=== PATIENT | female | born 1970 | race African-American/Black ===

== ENCOUNTER 2022-03-13 18:28 | Inpatient (IN) | payer OTHER ==
[2022-03-13 18:47] VITALS: BMI 27.0
[2022-03-13] MEDS ORDERED: P-EPHED 60MG/TRIPROLIDI 2.5MG TABLET PO PRN (21:11)
[2022-03-13] MEDS ORDERED: MAGNESIUM CITRATE 300 ML BOTTLE PO PRN (21:11)
[2022-03-13] MEDS ORDERED: MAGNESIUM HYDROX 2400MG/30ML ORAL SUSPENSION 30 ML CUP PO PRN (21:11)
[2022-03-13] MEDS ORDERED: guaiFENesin 200 MG/10 ML 10 ML UNIT-DOSE CUPS PO PRN (21:11)
[2022-03-13] MEDS ORDERED: LOPERAMIDE HCL 2 MG CAPSULE PO PRN (21:11)
[2022-03-14] MEDS ORDERED: TUBERCULIN PPD 5 TU/0.1ML VIAL ID ONE (01:27)
[2022-03-14] MEDS: IBUPROFEN 400 MG TABLET (FP) PO PRN ×2 (01:32→07:02)
[2022-03-14] MEDS: THIAMINE HCL 100 MG TABLET (FP) PO SCH ×2 (01:32→21:39)
[2022-03-14] MEDS: MELATONIN 5 MG TABLETS PO SCH ×2 (01:33→21:39)
[2022-03-14] MEDS ORDERED: cloNIDine HCL 0.1 MG TABLET PO ONE (06:32)
[2022-03-14] MEDS: PRENATAL VITAMINS W/ FOLIC ACID TABLET (FP) PO SCH (09:46)
[2022-03-14] MEDS: NICOTINE 21 MG/24 HOURS TOPICAL PATCH TD SCH (09:46)
[2022-03-14 10:51] LABS: HEMATOCRIT 36.2 % (32.4-45.2); HEMOGLOBIN 11.6 GM/dL (10.7-15.3); MCH 26.3 pg (25.7-33.7); MEAN PLT VOLUME 7.5 fl (7.5-11.1); PLATELET COUNT 228 10^3/uL (134-434); RBC 4.41 M/mm3 (3.60-5.2); RDW 13.3 % (11.6-15.6); WHITE BLOOD COUNT 4.5 K/mm3 (4.0-10.0)
[2022-03-14 11:08] LABS: CALCIUM 8.7 mg/dL (8.5-10.1)
[2022-03-14 11:09] LABS: ALBUMIN 3.4 g/dl (3.4-5.0); BLOOD UREA NITROGEN 52.6 mg/dL (7-18)
[2022-03-14 11:11] LABS: CREATININE 5.5 mg/dL (0.55-1.3)
[2022-03-14 11:12] LABS: BILIRUBIN,TOTAL 0.3 mg/dL (0.2-1); TOT PROT 6.4 g/dl (6.4-8.2)
[2022-03-14 11:21] LABS: SYPHILIS W/ RPR CONF NON-REACTIVE (NONREACTIVE)
[2022-03-14] MEDS ORDERED: POTASSIUM CHLORIDE TABS 20 MEQ TABLET.ER (FP) PO ONE (11:51)
[2022-03-14] MEDS: LISINOPRIL 20 MG TABLET PO SCH (13:39)
[2022-03-14] MEDS: GABAPENTIN 100 MG CAPSULE PO SCH ×2 (13:39→21:39)
[2022-03-14] MEDS: NIFEdipine E.R. 90 MG TABLET PO SCH (21:39)
[2022-03-14] MEDS ORDERED: POTASSIUM CHLORIDE TABS 20 MEQ TABLET.ER (FP) PO SCH (22:00)
[2022-03-15] MEDS: GABAPENTIN 100 MG CAPSULE PO SCH ×3 (06:32→21:20)
[2022-03-15] MEDS: NICOTINE 21 MG/24 HOURS TOPICAL PATCH TD SCH (10:36)
[2022-03-15] MEDS: PRENATAL VITAMINS W/ FOLIC ACID TABLET (FP) PO SCH (10:36)
[2022-03-15] MEDS: LISINOPRIL 20 MG TABLET PO SCH (10:38)
[2022-03-15] MEDS: ACETAMINOPHEN 325 MG TABLET (FP) PO PRN ×3 (10:39→18:25)
[2022-03-15 12:14] LABS: EPI CELLS >36 /uL (0-25.1); HYALINE CASTS 0 /uL (0-3.1); PH,URINE 6.5 (5.0-8.0); URINE APPEARANCE CLEAR; URINE BACTERIA 488 /uL (0-1359); URINE BILIRUBIN NEGATIVE (NEGATIVE); URINE COLOR YELLOW; URINE GLUCOSE (UA) NEGATIVE (NEGATIVE); URINE KETONE NEGATIVE (NEGATIVE); URINE LEUK ESTERASE NEGATIVE (NEGATIVE); URINE NITRITE NEGATIVE (NEGATIVE); URINE PROTEIN 1+ (NEGATIVE); URINE RBC 7 /uL (0-23.9); URINE UROBILINOGEN 0.2 mg/dL (0.2-1.0); URINE WBC 29 /uL (0-25.8)
[2022-03-15] MEDS: NICOTINE 10 MG CARTRIDGE (INHALER) IH PRN (14:48)
[2022-03-15] MEDS: MELATONIN 5 MG TABLETS PO SCH (21:20)
[2022-03-15] MEDS: THIAMINE HCL 100 MG TABLET (FP) PO SCH (21:20)
[2022-03-15] MEDS: NIFEdipine E.R. 90 MG TABLET PO SCH (21:20)
[2022-03-16] MEDS: GABAPENTIN 100 MG CAPSULE PO SCH ×3 (06:35→21:04)
[2022-03-16] MEDS: LISINOPRIL 20 MG TABLET PO SCH ×2 (06:35→07:02)
[2022-03-16] MEDS: BACITRACIN 0.9 GM PACKET TP SCH ×2 (07:49→10:31)
[2022-03-16] MEDS: ACETAMINOPHEN 325 MG TABLET (FP) PO PRN ×2 (09:58→13:56)
[2022-03-16] MEDS: NICOTINE 21 MG/24 HOURS TOPICAL PATCH TD SCH (10:31)
[2022-03-16] MEDS: PRENATAL VITAMINS W/ FOLIC ACID TABLET (FP) PO SCH (10:31)
[2022-03-16] MEDS: METHYL SALICYLATE/MENTHOL OINT 30 GM TUBE TP SCH ×2 (13:56→21:06)
[2022-03-16] MEDS: METHOCARBAMOL 500 MG TABLET PO PRN ×2 (13:56→21:07)
[2022-03-16] MEDS: NIFEdipine E.R. 90 MG TABLET PO SCH (21:05)
[2022-03-16] MEDS: MELATONIN 5 MG TABLETS PO SCH (21:05)
[2022-03-16] MEDS: THIAMINE HCL 100 MG TABLET (FP) PO SCH (21:05)
[2022-03-17] MEDS: GABAPENTIN 100 MG CAPSULE PO SCH ×3 (06:22→21:06)
[2022-03-17] MEDS: LISINOPRIL 20 MG TABLET PO SCH (06:22)
[2022-03-17] MEDS: PRENATAL VITAMINS W/ FOLIC ACID TABLET (FP) PO SCH (09:40)
[2022-03-17] MEDS: BACITRACIN 0.9 GM PACKET TP SCH (09:40)
[2022-03-17] MEDS: METHYL SALICYLATE/MENTHOL OINT 30 GM TUBE TP SCH ×2 (09:40→21:43)
[2022-03-17] MEDS ORDERED: COLLOIDAL OATMEAL 1 BAR EACH TP PRN (10:22)
[2022-03-17] MEDS: NICOTINE 21 MG/24 HOURS TOPICAL PATCH TD SCH (10:49)
[2022-03-17 10:54] LABS: ALBUMIN 3.2 g/dl (3.4-5.0); BILIRUBIN,TOTAL 0.7 mg/dL (0.2-1); BLOOD UREA NITROGEN 18.7 mg/dL (7-18); CALCIUM 9.1 mg/dL (8.5-10.1); CREATININE 1.2 mg/dL (0.55-1.3); TOT PROT 6.7 g/dl (6.4-8.2)
[2022-03-17] MEDS: MINERAL OIL/PETROLAT/WATER TOPICAL CREAM 113 GM JAR TP SCH (10:57)
[2022-03-17] MEDS: NICOTINE 10 MG CARTRIDGE (INHALER) IH PRN (12:46)
[2022-03-17] MEDS: cloNIDine HCL 0.1 MG TABLET PO PRN (15:31)
[2022-03-17] MEDS: MELATONIN 5 MG TABLETS PO SCH (21:06)
[2022-03-17] MEDS: THIAMINE HCL 100 MG TABLET (FP) PO SCH (21:06)
[2022-03-17] MEDS: NIFEdipine E.R. 90 MG TABLET PO SCH (21:07)
[2022-03-17] MEDS: ACETAMINOPHEN 325 MG TABLET (FP) PO PRN (21:08)
[2022-03-18] MEDS: LISINOPRIL 20 MG TABLET PO SCH (06:16)
[2022-03-18] MEDS: GABAPENTIN 100 MG CAPSULE PO SCH ×3 (06:16→21:23)
[2022-03-18] MEDS: PRENATAL VITAMINS W/ FOLIC ACID TABLET (FP) PO SCH (09:34)
[2022-03-18] MEDS: METHYL SALICYLATE/MENTHOL OINT 30 GM TUBE TP SCH ×2 (09:35→21:31)
[2022-03-18] MEDS: BACITRACIN 0.9 GM PACKET TP SCH (09:35)
[2022-03-18] MEDS: MINERAL OIL/PETROLAT/WATER TOPICAL CREAM 113 GM JAR TP SCH (09:36)
[2022-03-18] MEDS: ACETAMINOPHEN 325 MG TABLET (FP) PO PRN ×2 (09:36→16:42)
[2022-03-18] MEDS: NICOTINE 21 MG/24 HOURS TOPICAL PATCH TD SCH (09:36)
[2022-03-18] MEDS: METHOCARBAMOL 500 MG TABLET PO PRN ×2 (14:11→21:23)
[2022-03-18] MEDS: THIAMINE HCL 100 MG TABLET (FP) PO SCH (21:22)
[2022-03-18] MEDS: MELATONIN 5 MG TABLETS PO SCH (21:23)
[2022-03-18] MEDS: NIFEdipine E.R. 90 MG TABLET PO SCH (21:23)
[2022-03-18] MEDS: cloNIDine HCL 0.1 MG TABLET PO PRN (22:11)
[2022-03-19] MEDS: GABAPENTIN 100 MG CAPSULE PO SCH ×3 (05:50→21:08)
[2022-03-19] MEDS: LISINOPRIL 20 MG TABLET PO SCH (06:00)
[2022-03-19] MEDS: PRENATAL VITAMINS W/ FOLIC ACID TABLET (FP) PO SCH (09:25)
[2022-03-19] MEDS: cloNIDine HCL 0.1 MG TABLET PO PRN ×2 (09:25→20:48)
[2022-03-19] MEDS: METHYL SALICYLATE/MENTHOL OINT 30 GM TUBE TP SCH ×2 (09:26→21:08)
[2022-03-19] MEDS: BACITRACIN 0.9 GM PACKET TP SCH (09:26)
[2022-03-19] MEDS: MINERAL OIL/PETROLAT/WATER TOPICAL CREAM 113 GM JAR TP SCH (09:27)
[2022-03-19] MEDS: NICOTINE 21 MG/24 HOURS TOPICAL PATCH TD SCH (09:27)
[2022-03-19] MEDS: ACETAMINOPHEN 325 MG TABLET (FP) PO PRN (18:59)
[2022-03-19] MEDS: METHOCARBAMOL 500 MG TABLET PO PRN (18:59)
[2022-03-19] MEDS: MELATONIN 5 MG TABLETS PO SCH (21:07)
[2022-03-19] MEDS: NIFEdipine E.R. 90 MG TABLET PO SCH (21:08)
[2022-03-19] MEDS: THIAMINE HCL 100 MG TABLET (FP) PO SCH (21:08)
[2022-03-20] MEDS: GABAPENTIN 100 MG CAPSULE PO SCH ×3 (06:09→21:06)
[2022-03-20] MEDS: LISINOPRIL 20 MG TABLET PO SCH (06:09)
[2022-03-20] MEDS: PRENATAL VITAMINS W/ FOLIC ACID TABLET (FP) PO SCH (09:45)
[2022-03-20] MEDS: cloNIDine HCL 0.1 MG TABLET PO PRN (09:45)
[2022-03-20] MEDS: METHYL SALICYLATE/MENTHOL OINT 30 GM TUBE TP SCH ×2 (09:46→21:07)
[2022-03-20] MEDS: BACITRACIN 0.9 GM PACKET TP SCH (09:46)
[2022-03-20] MEDS: METHOCARBAMOL 500 MG TABLET PO PRN ×2 (09:47→17:32)
[2022-03-20] MEDS: ACETAMINOPHEN 325 MG TABLET (FP) PO PRN ×3 (09:48→21:08)
[2022-03-20] MEDS: MINERAL OIL/PETROLAT/WATER TOPICAL CREAM 113 GM JAR TP SCH (09:55)
[2022-03-20] MEDS: NICOTINE 21 MG/24 HOURS TOPICAL PATCH TD SCH (09:55)
[2022-03-20] MEDS ORDERED: ARIPiprazole 10 MG TABLET PO ONE (14:58)
[2022-03-20] MEDS: THIAMINE HCL 100 MG TABLET (FP) PO SCH (21:06)
[2022-03-20] MEDS: NIFEdipine E.R. 90 MG TABLET PO SCH (21:06)
[2022-03-20] MEDS: MELATONIN 5 MG TABLETS PO SCH (21:10)
[2022-03-21] MEDS: LISINOPRIL 20 MG TABLET PO SCH (06:27)
[2022-03-21] MEDS: GABAPENTIN 100 MG CAPSULE PO SCH ×3 (06:27→21:09)
[2022-03-21] MEDS: BACITRACIN 0.9 GM PACKET TP SCH (09:51)
[2022-03-21] MEDS: NICOTINE 21 MG/24 HOURS TOPICAL PATCH TD SCH (09:51)
[2022-03-21] MEDS: METHYL SALICYLATE/MENTHOL OINT 30 GM TUBE TP SCH ×2 (09:51→21:10)
[2022-03-21] MEDS: MINERAL OIL/PETROLAT/WATER TOPICAL CREAM 113 GM JAR TP SCH (09:51)
[2022-03-21] MEDS: NICOTINE 10 MG CARTRIDGE (INHALER) IH PRN (09:51)
[2022-03-21] MEDS: PRENATAL VITAMINS W/ FOLIC ACID TABLET (FP) PO SCH (09:51)
[2022-03-21] MEDS: METHOCARBAMOL 500 MG TABLET PO PRN ×2 (09:53→21:09)
[2022-03-21] MEDS: ARIPiprazole 10 MG TABLET PO SCH (10:50)
[2022-03-21] MEDS: FLUoxetine HCL 20 MG CAPSULE PO SCH (10:50)
[2022-03-21] MEDS: ACETAMINOPHEN 325 MG TABLET (FP) PO PRN (20:12)
[2022-03-21] MEDS: NIFEdipine E.R. 90 MG TABLET PO SCH (21:09)
[2022-03-21] MEDS: THIAMINE HCL 100 MG TABLET (FP) PO SCH (21:09)
[2022-03-21] MEDS: cloNIDine HCL 0.1 MG TABLET PO PRN (21:09)
[2022-03-21] MEDS: MELATONIN 5 MG TABLETS PO SCH (21:10)
[2022-03-22] MEDS: ACETAMINOPHEN 325 MG TABLET (FP) PO PRN ×3 (06:27→21:15)
[2022-03-22] MEDS: LISINOPRIL 20 MG TABLET PO SCH (06:28)
[2022-03-22] MEDS: GABAPENTIN 100 MG CAPSULE PO SCH ×3 (06:28→21:15)
[2022-03-22] MEDS: NICOTINE 21 MG/24 HOURS TOPICAL PATCH TD SCH (09:54)
[2022-03-22] MEDS: FLUoxetine HCL 20 MG CAPSULE PO SCH (09:54)
[2022-03-22] MEDS: PRENATAL VITAMINS W/ FOLIC ACID TABLET (FP) PO SCH (09:54)
[2022-03-22] MEDS: ARIPiprazole 10 MG TABLET PO SCH (09:54)
[2022-03-22] MEDS: MINERAL OIL/PETROLAT/WATER TOPICAL CREAM 113 GM JAR TP SCH (09:55)
[2022-03-22] MEDS: BACITRACIN 0.9 GM PACKET TP SCH (09:55)
[2022-03-22] MEDS: METHYL SALICYLATE/MENTHOL OINT 30 GM TUBE TP SCH ×2 (09:55→22:46)
[2022-03-22] MEDS: METHOCARBAMOL 500 MG TABLET PO PRN ×2 (09:58→21:15)
[2022-03-22] MEDS: cloNIDine HCL 0.1 MG TABLET PO PRN (14:20)
[2022-03-22] MEDS: THIAMINE HCL 100 MG TABLET (FP) PO SCH (21:15)
[2022-03-22] MEDS: NIFEdipine E.R. 90 MG TABLET PO SCH (21:15)
[2022-03-22] MEDS: MELATONIN 5 MG TABLETS PO SCH (21:16)
[2022-03-23] MEDS: GABAPENTIN 100 MG CAPSULE PO SCH ×3 (06:09→21:00)
[2022-03-23] MEDS: LISINOPRIL 20 MG TABLET PO SCH (06:09)
[2022-03-23] MEDS: PRENATAL VITAMINS W/ FOLIC ACID TABLET (FP) PO SCH (09:42)
[2022-03-23] MEDS: cloNIDine HCL 0.1 MG TABLET PO PRN (09:42)
[2022-03-23] MEDS: FLUoxetine HCL 20 MG CAPSULE PO SCH (09:42)
[2022-03-23] MEDS: ARIPiprazole 10 MG TABLET PO SCH (09:42)
[2022-03-23] MEDS: BACITRACIN 0.9 GM PACKET TP SCH (09:42)
[2022-03-23] MEDS: MINERAL OIL/PETROLAT/WATER TOPICAL CREAM 113 GM JAR TP SCH (09:43)
[2022-03-23] MEDS: METHYL SALICYLATE/MENTHOL OINT 30 GM TUBE TP SCH ×2 (09:43→21:16)
[2022-03-23] MEDS: NICOTINE 21 MG/24 HOURS TOPICAL PATCH TD SCH (09:43)
[2022-03-23] MEDS: METHOCARBAMOL 500 MG TABLET PO PRN (17:29)
[2022-03-23] MEDS: NIFEdipine E.R. 90 MG TABLET PO SCH (21:00)
[2022-03-23] MEDS: MELATONIN 5 MG TABLETS PO SCH (21:00)
[2022-03-23] MEDS: THIAMINE HCL 100 MG TABLET (FP) PO SCH (21:01)
[2022-03-23] MEDS: ACETAMINOPHEN 325 MG TABLET (FP) PO PRN (21:01)
[2022-03-24] MEDS: GABAPENTIN 100 MG CAPSULE PO SCH ×3 (06:48→21:05)
[2022-03-24] MEDS: LISINOPRIL 20 MG TABLET PO SCH (06:48)
[2022-03-24] MEDS: ACETAMINOPHEN 325 MG TABLET (FP) PO PRN ×2 (06:48→16:49)
[2022-03-24] MEDS: PRENATAL VITAMINS W/ FOLIC ACID TABLET (FP) PO SCH (09:45)
[2022-03-24] MEDS: MINERAL OIL/PETROLAT/WATER TOPICAL CREAM 113 GM JAR TP SCH (09:46)
[2022-03-24] MEDS: BACITRACIN 0.9 GM PACKET TP SCH (09:46)
[2022-03-24] MEDS: FLUoxetine HCL 20 MG CAPSULE PO SCH (09:46)
[2022-03-24] MEDS ORDERED: ARIPiprazole 5 MG TABLET ONE (09:46)
[2022-03-24] MEDS: METHYL SALICYLATE/MENTHOL OINT 30 GM TUBE TP SCH ×2 (09:46→21:05)
[2022-03-24] MEDS: NICOTINE 21 MG/24 HOURS TOPICAL PATCH TD SCH (09:46)
[2022-03-24] MEDS: ARIPiprazole 10 MG TABLET PO SCH (09:47)
[2022-03-24] MEDS: METHOCARBAMOL 500 MG TABLET PO PRN (16:50)
[2022-03-24] MEDS: THIAMINE HCL 100 MG TABLET (FP) PO SCH (21:04)
[2022-03-24] MEDS: NIFEdipine E.R. 90 MG TABLET PO SCH (21:04)
[2022-03-24] MEDS: MELATONIN 5 MG TABLETS PO SCH (21:05)
[2022-03-24] MEDS: NICOTINE 10 MG CARTRIDGE (INHALER) IH PRN (21:06)
[2022-03-25] MEDS: ACETAMINOPHEN 325 MG TABLET (FP) PO PRN ×3 (02:06→18:23)
[2022-03-25] MEDS: LISINOPRIL 20 MG TABLET PO SCH (06:13)
[2022-03-25] MEDS: GABAPENTIN 100 MG CAPSULE PO SCH ×3 (06:13→22:02)
[2022-03-25] MEDS: PRENATAL VITAMINS W/ FOLIC ACID TABLET (FP) PO SCH (09:37)
[2022-03-25] MEDS: NICOTINE 21 MG/24 HOURS TOPICAL PATCH TD SCH (09:37)
[2022-03-25] MEDS: METHYL SALICYLATE/MENTHOL OINT 30 GM TUBE TP SCH ×2 (09:38→22:01)
[2022-03-25] MEDS: ARIPiprazole 10 MG TABLET PO SCH (09:38)
[2022-03-25] MEDS: MINERAL OIL/PETROLAT/WATER TOPICAL CREAM 113 GM JAR TP SCH (09:38)
[2022-03-25] MEDS: FLUoxetine HCL 20 MG CAPSULE PO SCH (09:38)
[2022-03-25] MEDS: BACITRACIN 0.9 GM PACKET TP SCH (09:39)
[2022-03-25] MEDS: MAG HYDROX/AL HYDROX/SIMETH 30 ML UNIT-DOSE CUP PO PRN ×2 (12:21→20:27)
[2022-03-25] MEDS: METHOCARBAMOL 500 MG TABLET PO PRN (12:23)
[2022-03-25] MEDS: cloNIDine HCL 0.1 MG TABLET PO PRN (20:27)
[2022-03-25] MEDS: NIFEdipine E.R. 90 MG TABLET PO SCH (22:01)
[2022-03-25] MEDS: MELATONIN 5 MG TABLETS PO SCH (22:01)
[2022-03-25] MEDS: THIAMINE HCL 100 MG TABLET (FP) PO SCH (22:02)
[2022-03-26] MEDS: GABAPENTIN 100 MG CAPSULE PO SCH ×3 (06:26→21:16)
[2022-03-26] MEDS: ACETAMINOPHEN 325 MG TABLET (FP) PO PRN ×2 (06:26→17:03)
[2022-03-26] MEDS: LISINOPRIL 20 MG TABLET PO SCH (06:26)
[2022-03-26] MEDS: PRENATAL VITAMINS W/ FOLIC ACID TABLET (FP) PO SCH (10:28)
[2022-03-26] MEDS: BACITRACIN 0.9 GM PACKET TP SCH (10:29)
[2022-03-26] MEDS: METHYL SALICYLATE/MENTHOL OINT 30 GM TUBE TP SCH ×2 (10:29→21:19)
[2022-03-26] MEDS: ARIPiprazole 10 MG TABLET PO SCH (10:29)
[2022-03-26] MEDS: FLUoxetine HCL 20 MG CAPSULE PO SCH (10:29)
[2022-03-26] MEDS: NICOTINE 21 MG/24 HOURS TOPICAL PATCH TD SCH (10:30)
[2022-03-26] MEDS: MINERAL OIL/PETROLAT/WATER TOPICAL CREAM 113 GM JAR TP SCH (10:30)
[2022-03-26] MEDS: METHOCARBAMOL 500 MG TABLET PO PRN ×2 (10:31→17:03)
[2022-03-26] MEDS: cloNIDine HCL 0.1 MG TABLET PO PRN (13:26)
[2022-03-26] MEDS: MAG HYDROX/AL HYDROX/SIMETH 30 ML UNIT-DOSE CUP PO PRN (17:03)
[2022-03-26] MEDS: THIAMINE HCL 100 MG TABLET (FP) PO SCH (21:16)
[2022-03-26] MEDS: NIFEdipine E.R. 90 MG TABLET PO SCH (21:16)
[2022-03-26] MEDS: MELATONIN 5 MG TABLETS PO SCH (21:16)
[2022-03-27] MEDS: GABAPENTIN 100 MG CAPSULE PO SCH ×3 (06:03→21:12)
[2022-03-27] MEDS: LISINOPRIL 20 MG TABLET PO SCH (06:03)
[2022-03-27] MEDS: ACETAMINOPHEN 325 MG TABLET (FP) PO PRN ×2 (06:05→13:57)
[2022-03-27] MEDS: METHOCARBAMOL 500 MG TABLET PO PRN ×3 (06:06→21:12)
[2022-03-27] MEDS: MINERAL OIL/PETROLAT/WATER TOPICAL CREAM 113 GM JAR TP SCH (09:59)
[2022-03-27] MEDS: METHYL SALICYLATE/MENTHOL OINT 30 GM TUBE TP SCH ×2 (09:59→21:42)
[2022-03-27] MEDS: ARIPiprazole 10 MG TABLET PO SCH (10:00)
[2022-03-27] MEDS: PRENATAL VITAMINS W/ FOLIC ACID TABLET (FP) PO SCH (10:00)
[2022-03-27] MEDS: FLUoxetine HCL 20 MG CAPSULE PO SCH (10:00)
[2022-03-27] MEDS: NICOTINE 21 MG/24 HOURS TOPICAL PATCH TD SCH (10:00)
[2022-03-27] MEDS: BACITRACIN 0.9 GM PACKET TP SCH (10:01)
[2022-03-27] MEDS: MELATONIN 5 MG TABLETS PO SCH (21:12)
[2022-03-27] MEDS: THIAMINE HCL 100 MG TABLET (FP) PO SCH (21:12)
[2022-03-27] MEDS: NIFEdipine E.R. 90 MG TABLET PO SCH (21:14)
[2022-03-28] MEDS: GABAPENTIN 100 MG CAPSULE PO SCH ×3 (06:24→21:06)
[2022-03-28] MEDS: LISINOPRIL 20 MG TABLET PO SCH (06:59)
[2022-03-28] MEDS: METHOCARBAMOL 500 MG TABLET PO PRN ×2 (08:31→19:22)
[2022-03-28] MEDS: BACITRACIN 0.9 GM PACKET TP SCH (10:27)
[2022-03-28] MEDS: METHYL SALICYLATE/MENTHOL OINT 30 GM TUBE TP SCH ×2 (10:27→21:52)
[2022-03-28] MEDS: PRENATAL VITAMINS W/ FOLIC ACID TABLET (FP) PO SCH (10:27)
[2022-03-28] MEDS: ARIPiprazole 10 MG TABLET PO SCH (10:27)
[2022-03-28] MEDS: FLUoxetine HCL 20 MG CAPSULE PO SCH (10:27)
[2022-03-28] MEDS: NICOTINE 21 MG/24 HOURS TOPICAL PATCH TD SCH (10:28)
[2022-03-28] MEDS: MINERAL OIL/PETROLAT/WATER TOPICAL CREAM 113 GM JAR TP SCH (10:28)
[2022-03-28] MEDS: ACETAMINOPHEN 325 MG TABLET (FP) PO PRN (19:22)
[2022-03-28] MEDS: MELATONIN 5 MG TABLETS PO SCH (21:06)
[2022-03-28] MEDS: NIFEdipine E.R. 90 MG TABLET PO SCH (21:07)
[2022-03-28] MEDS: cloNIDine HCL 0.1 MG TABLET PO PRN (21:07)
[2022-03-28] MEDS: THIAMINE HCL 100 MG TABLET (FP) PO SCH (21:07)
[2022-03-29] MEDS: GABAPENTIN 100 MG CAPSULE PO SCH ×3 (06:20→21:14)
[2022-03-29] MEDS: LISINOPRIL 20 MG TABLET PO SCH (06:20)
[2022-03-29] MEDS: NICOTINE 10 MG CARTRIDGE (INHALER) IH PRN (07:48)
[2022-03-29] MEDS: ARIPiprazole 10 MG TABLET PO SCH (10:35)
[2022-03-29] MEDS: FLUoxetine HCL 20 MG CAPSULE PO SCH (10:35)
[2022-03-29] MEDS: PRENATAL VITAMINS W/ FOLIC ACID TABLET (FP) PO SCH (10:35)
[2022-03-29] MEDS: BACITRACIN 0.9 GM PACKET TP SCH (10:35)
[2022-03-29] MEDS: METHYL SALICYLATE/MENTHOL OINT 30 GM TUBE TP SCH ×2 (10:36→21:14)
[2022-03-29] MEDS: NICOTINE 21 MG/24 HOURS TOPICAL PATCH TD SCH (10:37)
[2022-03-29] MEDS: MINERAL OIL/PETROLAT/WATER TOPICAL CREAM 113 GM JAR TP SCH (10:37)
[2022-03-29] MEDS: METHOCARBAMOL 500 MG TABLET PO PRN ×2 (10:38→21:15)
[2022-03-29] MEDS: ACETAMINOPHEN 325 MG TABLET (FP) PO PRN (21:14)
[2022-03-29] MEDS: MELATONIN 5 MG TABLETS PO SCH (21:14)
[2022-03-29] MEDS: THIAMINE HCL 100 MG TABLET (FP) PO SCH (21:15)
[2022-03-29] MEDS: NIFEdipine E.R. 90 MG TABLET PO SCH (21:15)
[2022-03-30] MEDS: LISINOPRIL 20 MG TABLET PO SCH (06:09)
[2022-03-30] MEDS: GABAPENTIN 100 MG CAPSULE PO SCH ×3 (06:09→21:22)
[2022-03-30] MEDS: PRENATAL VITAMINS W/ FOLIC ACID TABLET (FP) PO SCH (10:27)
[2022-03-30] MEDS: METHYL SALICYLATE/MENTHOL OINT 30 GM TUBE TP SCH ×2 (10:27→21:23)
[2022-03-30] MEDS: NICOTINE 21 MG/24 HOURS TOPICAL PATCH TD SCH (10:27)
[2022-03-30] MEDS: MINERAL OIL/PETROLAT/WATER TOPICAL CREAM 113 GM JAR TP SCH (10:27)
[2022-03-30] MEDS: ARIPiprazole 10 MG TABLET PO SCH (10:28)
[2022-03-30] MEDS: BACITRACIN 0.9 GM PACKET TP SCH (10:28)
[2022-03-30] MEDS: FLUoxetine HCL 20 MG CAPSULE PO SCH (10:28)
[2022-03-30] MEDS: METHOCARBAMOL 500 MG TABLET PO PRN (11:57)
[2022-03-30] MEDS: ACETAMINOPHEN 325 MG TABLET (FP) PO PRN (11:57)
[2022-03-30] MEDS: cloNIDine HCL 0.1 MG TABLET PO PRN (11:57)
[2022-03-30] MEDS: THIAMINE HCL 100 MG TABLET (FP) PO SCH (21:22)
[2022-03-30] MEDS: NIFEdipine E.R. 90 MG TABLET PO SCH (21:22)
[2022-03-30] MEDS: MELATONIN 5 MG TABLETS PO SCH (21:22)
[2022-03-31] MEDS: LISINOPRIL 20 MG TABLET PO SCH (06:28)
[2022-03-31] MEDS: GABAPENTIN 100 MG CAPSULE PO SCH ×3 (06:28→21:19)
[2022-03-31] MEDS: ARIPiprazole 10 MG TABLET PO SCH (10:52)
[2022-03-31] MEDS: PRENATAL VITAMINS W/ FOLIC ACID TABLET (FP) PO SCH (10:52)
[2022-03-31] MEDS: cloNIDine HCL 0.1 MG TABLET PO PRN (10:52)
[2022-03-31] MEDS: FLUoxetine HCL 20 MG CAPSULE PO SCH (10:52)
[2022-03-31] MEDS: BACITRACIN 0.9 GM PACKET TP SCH (10:52)
[2022-03-31] MEDS: MINERAL OIL/PETROLAT/WATER TOPICAL CREAM 113 GM JAR TP SCH (10:53)
[2022-03-31] MEDS: NICOTINE 21 MG/24 HOURS TOPICAL PATCH TD SCH (10:53)
[2022-03-31] MEDS: METHYL SALICYLATE/MENTHOL OINT 30 GM TUBE TP SCH ×2 (10:53→21:45)
[2022-03-31] MEDS: METHOCARBAMOL 500 MG TABLET PO PRN ×2 (13:23→21:19)
[2022-03-31] MEDS: MAG HYDROX/AL HYDROX/SIMETH 30 ML UNIT-DOSE CUP PO PRN (16:37)
[2022-03-31] MEDS: THIAMINE HCL 100 MG TABLET (FP) PO SCH (21:19)
[2022-03-31] MEDS: NIFEdipine E.R. 90 MG TABLET PO SCH (21:19)
[2022-03-31] MEDS: MELATONIN 5 MG TABLETS PO SCH (21:19)
[2022-03-31] MEDS: NICOTINE 10 MG CARTRIDGE (INHALER) IH PRN (21:32)
[2022-04-01] MEDS: GABAPENTIN 100 MG CAPSULE PO SCH ×3 (05:59→21:35)
[2022-04-01] MEDS: LISINOPRIL 20 MG TABLET PO SCH (05:59)
[2022-04-01] MEDS: cloNIDine HCL 0.1 MG TABLET PO PRN (10:08)
[2022-04-01] MEDS: ARIPiprazole 10 MG TABLET PO SCH (10:08)
[2022-04-01] MEDS: PRENATAL VITAMINS W/ FOLIC ACID TABLET (FP) PO SCH (10:08)
[2022-04-01] MEDS: FLUoxetine HCL 20 MG CAPSULE PO SCH (10:08)
[2022-04-01] MEDS: MINERAL OIL/PETROLAT/WATER TOPICAL CREAM 113 GM JAR TP SCH (10:09)
[2022-04-01] MEDS: NICOTINE 21 MG/24 HOURS TOPICAL PATCH TD SCH (10:09)
[2022-04-01] MEDS: BACITRACIN 0.9 GM PACKET TP SCH (10:09)
[2022-04-01] MEDS: METHYL SALICYLATE/MENTHOL OINT 30 GM TUBE TP SCH ×2 (10:09→21:34)
[2022-04-01] MEDS: MELATONIN 5 MG TABLETS PO SCH (21:34)
[2022-04-01] MEDS: METHOCARBAMOL 500 MG TABLET PO PRN (21:35)
[2022-04-01] MEDS: THIAMINE HCL 100 MG TABLET (FP) PO SCH (21:35)
[2022-04-01] MEDS: NIFEdipine E.R. 90 MG TABLET PO SCH (21:35)
[2022-04-02] MEDS: METHOCARBAMOL 500 MG TABLET PO PRN ×3 (03:51→21:03)
[2022-04-02] MEDS: GABAPENTIN 100 MG CAPSULE PO SCH ×3 (05:57→21:04)
[2022-04-02] MEDS: LISINOPRIL 20 MG TABLET PO SCH (06:00)
[2022-04-02] MEDS: ARIPiprazole 10 MG TABLET PO SCH (10:18)
[2022-04-02] MEDS: FLUoxetine HCL 20 MG CAPSULE PO SCH (10:18)
[2022-04-02] MEDS: PRENATAL VITAMINS W/ FOLIC ACID TABLET (FP) PO SCH (10:18)
[2022-04-02] MEDS: METHYL SALICYLATE/MENTHOL OINT 30 GM TUBE TP SCH ×2 (10:19→21:29)
[2022-04-02] MEDS: NICOTINE 21 MG/24 HOURS TOPICAL PATCH TD SCH (10:19)
[2022-04-02] MEDS: BACITRACIN 0.9 GM PACKET TP SCH (10:19)
[2022-04-02] MEDS: MINERAL OIL/PETROLAT/WATER TOPICAL CREAM 113 GM JAR TP SCH (10:19)
[2022-04-02] MEDS: ACETAMINOPHEN 325 MG TABLET (FP) PO PRN (11:18)
[2022-04-02] MEDS: NICOTINE 10 MG CARTRIDGE (INHALER) IH PRN (13:18)
[2022-04-02] MEDS: THIAMINE HCL 100 MG TABLET (FP) PO SCH (21:03)
[2022-04-02] MEDS: MELATONIN 5 MG TABLETS PO SCH (21:04)
[2022-04-02] MEDS: NIFEdipine E.R. 90 MG TABLET PO SCH (21:04)
[2022-04-02] MEDS: MAG HYDROX/AL HYDROX/SIMETH 30 ML UNIT-DOSE CUP PO PRN (21:05)
[2022-04-03] MEDS: LISINOPRIL 20 MG TABLET PO SCH (06:04)
[2022-04-03] MEDS: GABAPENTIN 100 MG CAPSULE PO SCH (06:04)
[2022-04-03 07:20] VITALS: TEMP 97.8
[2022-04-03] MEDS: FLUoxetine HCL 20 MG CAPSULE PO SCH (09:11)
[2022-04-03] MEDS: ARIPiprazole 10 MG TABLET PO SCH (09:11)
[2022-04-03] MEDS: PRENATAL VITAMINS W/ FOLIC ACID TABLET (FP) PO SCH (09:11)
[2022-04-03] MEDS: METHYL SALICYLATE/MENTHOL OINT 30 GM TUBE TP SCH (09:12)
[2022-04-03] MEDS: BACITRACIN 0.9 GM PACKET TP SCH (09:12)
[2022-04-03] MEDS: MINERAL OIL/PETROLAT/WATER TOPICAL CREAM 113 GM JAR TP SCH (09:12)
[2022-04-03] MEDS: NICOTINE 21 MG/24 HOURS TOPICAL PATCH TD SCH (09:12)
[2022-04-03 10:49] VITALS: BP 161/91; PULSE 86; RESP 16
== END 2022-04-03 09:43 | disposition home or self-care (01) | DRG 772 ==
LOC: YASAS 18:28 → Y5N 22:16
PROVIDERS: ADMIT Allergy & Immunology; ATTEND Psychiatry & Neurology Pain Medicine
PROC: HZ42ZZZ Group Counseling for Substance Abuse Treatment, Cognitive-Behavioral (ICD-10-PCS; principal; 2022-03-13)
DX: F14.20 Cocaine dependence, uncomplicated (principal); F12.20 Cannabis dependence, uncomplicated; F17.210 Nicotine dependence, cigarettes, uncomplicated; F25.1 Schizoaffective disorder, depressive type; F39 Unspecified mood [affective] disorder; F19.282 Other psychoactive substance dependence with psychoactive substance-induced sleep disorder; F19.24 Other psychoactive substance dependence with psychoactive substance-induced mood disorder; E87.6 Hypokalemia; I10 Essential (primary) hypertension; J45.909 Unspecified asthma, uncomplicated; M54.31 Sciatica, right side; Z99.89 Dependence on other enabling machines and devices
CPT/HCPCS: 36415; 80053; 81003; 81025; 82947; 85027; 86780; 86803; 93005; 93010; C9803-CS; J0735; U0003; U0005

== ENCOUNTER 2022-08-24 11:14 | Inpatient (IN) | payer OTHER ==
[2022-08-24 12:10] VITALS: BMI 31.3
[2022-08-24] MEDS ORDERED: ONDANSETRON *ODT* 4 MG TABLET SL PRN (14:26)
[2022-08-24] MEDS ORDERED: BENZOCAINE/MENTHOL (CHLORASEPTIC ) LOZENGE MM PRN (14:26)
[2022-08-24] MEDS ORDERED: DICYCLOMINE HCL 10 MG CAPSULE PO PRN (14:26)
[2022-08-24] MEDS ORDERED: LOPERAMIDE HCL 2 MG CAPSULE PO PRN (14:26)
[2022-08-24] MEDS ORDERED: BISMUTH SUBSALICYLATE 524 MG/30 ML PO PRN (14:26)
[2022-08-24] MEDS ORDERED: IBUPROFEN 400 MG TABLET (FP) PO PRN (14:26)
[2022-08-24] MEDS ORDERED: ACETAMINOPHEN 325 MG TABLET (FP) PO PRN (14:26)
[2022-08-24] MEDS ORDERED: POLYETHYLENE GLYCOL (HEALTHYLAX) 3350 17 GM PACKET PO PRN (14:26)
[2022-08-24] MEDS ORDERED: NICOTINE 10 MG CARTRIDGE (INHALER) IH PRN (14:26)
[2022-08-24] MEDS ORDERED: MAG HYDROX/AL HYDROX/SIMETH 30 ML UNIT-DOSE CUP PO PRN (14:26)
[2022-08-24] MEDS ORDERED: NALOXONE HCL (KLOXXADO) 8 MG SPRAY NS PRN (14:26)
[2022-08-24] MEDS ORDERED: MAGNESIUM HYDROX 2400MG/30ML ORAL SUSPENSION 30 ML CUP PO PRN (14:26)
[2022-08-24] MEDS ORDERED: chlordiazePOXIDE HCL 25 MG CAPSULE PO PRN (14:26)
[2022-08-24] MEDS ORDERED: ALBUTEROL SO4 HFA INHALER IH PRN (14:31)
[2022-08-24] MEDS ORDERED: cloNIDine HCL 0.1 MG TABLET PO ONE ×2 (14:35→16:26)
[2022-08-24] MEDS ORDERED: NIFEdipine E.R. 90 MG TABLET PO SCH (14:45)
[2022-08-24] MEDS ORDERED: ENALAPRIL MALEATE 5 MG TABLET PO SCH (14:45)
[2022-08-24] MEDS ORDERED: LISINOPRIL 10 MG TABLET ONE (14:52)
[2022-08-24] MEDS ORDERED: GABAPENTIN 100 MG CAPSULE ONE (14:53)
[2022-08-24] MEDS ORDERED: cloNIDine HCL 0.1 MG TABLET ONE (14:53)
[2022-08-24] MEDS: GABAPENTIN 100 MG CAPSULE PO SCH ×2 (15:04→23:06)
[2022-08-24] MEDS: LISINOPRIL 20 MG TABLET PO SCH (15:05)
[2022-08-24] MEDS ORDERED: NIFEdipine E.R. 30 MG TABLET PO ONE (18:40)
[2022-08-24] MEDS: NIFEdipine E.R. 90 MG TABLET PO SCH (18:45)
[2022-08-24] MEDS: chlordiazePOXIDE HCL 25 MG CAPSULE PO SCH ×2 (18:46→23:07)
[2022-08-24] MEDS: MELATONIN 5 MG TABLETS PO SCH (23:06)
[2022-08-24] MEDS: hydrOXYzine PAMOATE 25 MG CAPSULE (FP) PO PRN (23:06)
[2022-08-24] MEDS: THIAMINE HCL 100 MG TABLET (FP) PO SCH (23:06)
[2022-08-24] MEDS: METHOCARBAMOL 500 MG TABLET PO PRN (23:06)
[2022-08-25] MEDS: GABAPENTIN 100 MG CAPSULE PO SCH ×3 (05:01→22:12)
[2022-08-25] MEDS: METHOCARBAMOL 500 MG TABLET PO PRN ×3 (05:01→22:14)
[2022-08-25] MEDS: IBUPROFEN 600 MG TABLET (FP) PO PRN ×2 (05:01→16:09)
[2022-08-25] MEDS: chlordiazePOXIDE HCL 25 MG CAPSULE PO SCH ×4 (05:03→22:13)
[2022-08-25] MEDS: LISINOPRIL 20 MG TABLET PO SCH (10:02)
[2022-08-25] MEDS: NIFEdipine E.R. 90 MG TABLET PO SCH (10:03)
[2022-08-25] MEDS: PRENATAL VITAMINS W/ FOLIC ACID TABLET (FP) PO SCH (10:03)
[2022-08-25 13:10] LABS: HEMATOCRIT 36.9 % (32.4-45.2); HEMOGLOBIN 11.6 GM/dL (10.7-15.3); MCH 25.6 pg (25.7-33.7); MCHC 31.3 g/dl (32.0-36.0); MEAN CELL VOLUME 81.8 fl (80-96); MEAN PLT VOLUME 7.5 fl (7.5-11.1); PLATELET COUNT 283 10^3/uL (134-434); RBC 4.51 M/mm3 (3.60-5.2); RDW 14.3 % (11.6-15.6); WHITE BLOOD COUNT 4.3 K/mm3 (4.0-10.0)
[2022-08-25 13:18] LABS: CALCIUM 9.2 mg/dL (8.5-10.1)
[2022-08-25 13:19] LABS: ALBUMIN 3.6 g/dl (3.4-5.0); BLOOD UREA NITROGEN 15.6 mg/dL (7-18)
[2022-08-25 13:20] LABS: BILIRUBIN,TOTAL 0.8 mg/dL (0.2-1)
[2022-08-25 13:22] LABS: CREATININE 1.2 mg/dL (0.55-1.3)
[2022-08-25 13:25] LABS: TOT PROT 7.3 g/dl (6.4-8.2)
[2022-08-25] MEDS: ACETAMINOPHEN 325 MG TABLET (FP) PO PRN (18:10)
[2022-08-25] MEDS ORDERED: GABAPENTIN 100 MG CAPSULE PO ONE (18:21)
[2022-08-25] MEDS: MELATONIN 5 MG TABLETS PO SCH (22:12)
[2022-08-25] MEDS: THIAMINE HCL 100 MG TABLET (FP) PO SCH (22:12)
[2022-08-26] MEDS: GABAPENTIN 100 MG CAPSULE PO SCH ×3 (05:56→22:25)
[2022-08-26] MEDS: chlordiazePOXIDE HCL 25 MG CAPSULE PO SCH ×4 (05:56→22:25)
[2022-08-26] MEDS: PRENATAL VITAMINS W/ FOLIC ACID TABLET (FP) PO SCH (10:14)
[2022-08-26] MEDS: LISINOPRIL 20 MG TABLET PO SCH (10:14)
[2022-08-26] MEDS: NIFEdipine E.R. 90 MG TABLET PO SCH (10:15)
[2022-08-26] MEDS: METHOCARBAMOL 500 MG TABLET PO PRN (15:03)
[2022-08-26] MEDS: IBUPROFEN 600 MG TABLET (FP) PO PRN (15:03)
[2022-08-26] MEDS: hydrOXYzine PAMOATE 25 MG CAPSULE (FP) PO PRN (17:59)
[2022-08-26] MEDS: MELATONIN 5 MG TABLETS PO SCH (22:25)
[2022-08-26] MEDS: THIAMINE HCL 100 MG TABLET (FP) PO SCH (22:25)
[2022-08-27] MEDS ORDERED: chlordiazePOXIDE HCL 10 MG CAPSULE PO PRN
[2022-08-27] MEDS: GABAPENTIN 100 MG CAPSULE PO SCH ×3 (06:11→22:45)
[2022-08-27] MEDS: chlordiazePOXIDE HCL 10 MG CAPSULE PO SCH ×4 (06:12→22:45)
[2022-08-27] MEDS: ACETAMINOPHEN 325 MG TABLET (FP) PO PRN (06:13)
[2022-08-27] MEDS: PRENATAL VITAMINS W/ FOLIC ACID TABLET (FP) PO SCH (10:23)
[2022-08-27] MEDS: LISINOPRIL 20 MG TABLET PO SCH (10:24)
[2022-08-27] MEDS: NIFEdipine E.R. 90 MG TABLET PO SCH (10:24)
[2022-08-27] MEDS: METHOCARBAMOL 500 MG TABLET PO PRN ×2 (10:26→17:54)
[2022-08-27] MEDS: THIAMINE HCL 100 MG TABLET (FP) PO SCH (22:45)
[2022-08-27] MEDS: MELATONIN 5 MG TABLETS PO SCH (22:45)
[2022-08-28] MEDS: METHOCARBAMOL 500 MG TABLET PO PRN (00:31)
[2022-08-28] MEDS: IBUPROFEN 600 MG TABLET (FP) PO PRN (04:45)
[2022-08-28] MEDS ORDERED: chlordiazePOXIDE HCL 10 MG CAPSULE PO SCH (05:00)
[2022-08-28] MEDS: GABAPENTIN 100 MG CAPSULE PO SCH ×2 (05:46→14:38)
[2022-08-28] MEDS: NIFEdipine E.R. 90 MG TABLET PO SCH (10:15)
[2022-08-28] MEDS: LISINOPRIL 20 MG TABLET PO SCH (10:15)
[2022-08-28] MEDS: PRENATAL VITAMINS W/ FOLIC ACID TABLET (FP) PO SCH (10:15)
[2022-08-28 13:25] VITALS: BP 161/96; PULSE 84; RESP 18; TEMP 97.3
[2022-08-29] MEDS ORDERED: chlordiazePOXIDE HCL 10 MG CAPSULE PO ONE (05:00)
== END 2022-08-28 15:03 | disposition home or self-care (01) | DRG 774 ==
LOC: YASAS 11:14 → Y3N 15:24
PROVIDERS: ADMIT Allergy & Immunology; ATTEND Surgery
PROC: HZ2ZZZZ Detoxification Services for Substance Abuse Treatment (ICD-10-PCS; principal; 2022-08-24)
DX: F10.230 Alcohol dependence with withdrawal, uncomplicated (principal); F14.20 Cocaine dependence, uncomplicated; F12.20 Cannabis dependence, uncomplicated; F17.210 Nicotine dependence, cigarettes, uncomplicated; F31.9 Bipolar disorder, unspecified; F20.9 Schizophrenia, unspecified; D50.8 Other iron deficiency anemias; I10 Essential (primary) hypertension; J45.909 Unspecified asthma, uncomplicated; M54.31 Sciatica, right side; Z88.0 Allergy status to penicillin
CPT/HCPCS: 36415; 80053; 85027; 86780; 87811; C9803-CS; U0003; U0005